=== PATIENT | male | born 1955 | race Caucasian/White ===

== ENCOUNTER 2020-06-01 11:06 | Inpatient (IN) | payer BC, OTHER ==
[~2020-06-01] VITALS: Ht 162.6 cm; Wt 52.2 kg
[2020-06-01] MEDS ORDERED: ACETAMINOPHEN 325 MG TABLET PO PRN (11:30)
[2020-06-01] MEDS ORDERED: BLOOD SUGAR DIAGNOSTIC 1 EACH STRIP IN ONE (11:30)
[2020-06-01] MEDS ORDERED: MAGNESIUM HYDROXIDE 30 ML UDC PO PRN (11:30)
[2020-06-01] MEDS ORDERED: LORAZEPAM 0.5 MG TABLET PO PRN (11:30)
[2020-06-01] MEDS ORDERED: MAG HYDROX/AL HYDROX/SIMETH 30 ML UDC PO PRN (11:30)
--- NOTE | 2020-06-01 11:30 | NUR ---
GPS/RN-NOTES ADMITTED 65 Y.O FEMALE PATIENT DIRECT ADMIT FROM [facility] . PATIENT BROUGHT IN BY AMBULANCE VIA GURNEY WITH TWO STAFF ASSIST. UPON FACE TO FACE INTERVIEW, PATIENT A/O X2 ,AMBULATORY STEADY GAIT.NOTED PATIENT DISHEVELLED FLAT AFFECT WITH EASILY ANGRY, AND IRRITABLE BEHAVIOR. PATIENT WAS ON 72 HR HOLD FOR DTS AND GD ADULT. ADVISEMENT WAS REVIEWED AND COPY WAS GIVEN TO THE PATIENT. PATIENT ANSWERS VERY LIMITED TO THE FREIGHT SORTER QUESTIONS AND REFUSED FULL BODY ASSESSMENT. PATIENT DENIES SI/HI/AVH AT THIS TIME. PATIENT WAS ORIENTED IN THE UNIT AND UNIT POLICIES. PATIENT'S RIGHT AND MEDICATION BOOKLET WAS GIVEN TO THE PATIENT. CONTRABAND DONE. DR. PIKE AND DR. MENEZES MADE AWARE OF THE ADMISSION. SISTER EULALIA ([phone]) MADE AWARE OF THE ADMISSION. Addendum: 06/01/20 at 1513 by REGIS BENTLEY RN CORRECTIONS ON PATIENT GENDER, PATIENT WAS A MALE.
--- NOTE | 2020-06-01 11:35 | NUR ---
GPS/RN-NOTES PATIENT REFUSED INITIAL ACCU-CHECK, EXPLAINED RISK AND BENEFITS BUT PATIENT STILL REFUSED.
[2020-06-01] MEDS ORDERED: NICO-676 TD (13:09)
[2020-06-01] MEDS ORDERED: CLON1TAB12 PO (13:09)
[2020-06-01] MEDS ORDERED: IBUP-1953 PO (13:09)
[2020-06-01] MEDS ORDERED: RIVA2.5T PO (13:09)
[2020-06-01] MEDS ORDERED: ATOR80TA PO (13:09)
[2020-06-01] MEDS ORDERED: NICO2GUM9 PO (13:09)
[2020-06-01] MEDS ORDERED: OLAN20TA6 PO (13:09)
[2020-06-01] MEDS ORDERED: FINA5TAB11 PO (13:09)
[2020-06-01] MEDS ORDERED: DIVA500T2 PO (13:09)
[2020-06-01] MEDS ORDERED: HALO5TAB PO (13:09)
[2020-06-01] MEDS ORDERED: OLAN5TAB6 PO (13:09)
[2020-06-01] MEDS ORDERED: ASPI-1152 PO (13:09)
[2020-06-01] MEDS ORDERED: LISI-607 PO (13:09)
[2020-06-01] MEDS ORDERED: METO25TA20 PO (13:09)
[2020-06-01] MEDS ORDERED: BENZ1TAB7 PO (13:09)
[2020-06-01 16:00] VITALS: BP 132/73
[2020-06-01] MEDS: DIVALPROEX SODIUM 250 MG TABLET.DR PO SCH ×2 (16:36→20:24)
[2020-06-01] MEDS ORDERED: NICOTINE POLACRILEX 2 MG GUM BC PRN (18:30)
--- NOTE | 2020-06-01 19:59 | NUR ---
GPS RN NOTE, [facility] CALLED ASKING FOR FAMILY TO BRING IN PATIENT'S XARELTO 2.5MG DOSE SO IT CAN BE GIVEN ACCURATELY. PHARMACY STATES THAT ONLY CARRY 10MG TABLETS OF XARELTO AND WILL HAVE A HARD TIME CUTTING XARELTO INTO FOURTHS TO MAKE AN ACCURATE DOSE OF XARELTO 2.5MG. CALLED PATIENT SISTER EULALIA PRATER [phone] INFORMED HER OF MY FINDINGS. PATIENT SISTER EULALIA PRATER STATED, " I THINK MY BOTHER MEDICATION WAS GIVEN TO [facility]. I WILL CHECK THEIR TOMORROW TO SEE IF IT THEIR AND I WILL BRING IT TO [facility] IF IT IS ". WILL ENDORSE THIS CONVERSATION TO P.M. SHIFT NURSE NOVEM. WILL CONTINUE TO MONITOR THIS PATIENT WITH THE HELP OF STAFF.
--- NOTE | 2020-06-01 20:30 | NUR ---
GPS-RN NOTE: PATIENT REFUSED TO HAVE SKIN BODY CHECK.
[2020-06-01 20:56] VITALS: BP 132/73
[2020-06-01] MEDS: IBUPROFEN 400 MG TABLET PO PRN (21:04)
--- NOTE | 2020-06-01 21:04 | NUR ---
GPS-RN NOTE: RIGHT KNEE PAIN PATIENT C/O RIGHT KNEE PAIN. ADMINISTERED MOTRIN 400MG PO ORDERED. WILL CONTINUE TO MONITOR FOR THE EFFECTIVENESS OF MEDICATION.
[2020-06-01] MEDS: OLANZAPINE 10 MG TABLET PO SCH (21:13)
[2020-06-01] MEDS: LORAZEPAM 0.5 MG TABLET PO PRN (22:42)
--- NOTE | 2020-06-01 22:42 | NUR ---
GPS-RN NOTE: ANXIETY PATIENT C/O FEELING ANXIOUS. ADMINISTERED ATIVAN 1MG PO ORDERED. WILL CONTINUE TO MONITOR FOR SAFETY AND BEHAVIOR.
[2020-06-02] MEDS: IBUPROFEN 400 MG TABLET PO PRN (03:48)
--- NOTE | 2020-06-02 03:49 | NUR ---
GPS-RN NOTE: GENERALIZED PAIN PATIENT C/O GENERALIZED PAIN. ADMINISTERED MOTRIN 400MG PO ORDERED. WILL CONTINUE TO MONITOR FOR THE EFFECTIVENESS OF MEDICATION.
[2020-06-02 07:40] LABS: CHOLESTEROL 128 mg/dL (<200); HDL CHOLESTEROL 31 mg/dL (40-60); LDL 83 mg/dL (0-99); TRIGLYCERIDES 55 mg/dL (30-150)
[2020-06-02 07:44] LABS: ALBUMIN 2.9 g/dL (3.4-5.0); BILIRUBIN,TOTAL 0.4 mg/dL (0.2-1.0); CALCIUM, SERUM 9.2 mg/dL (8.5-10.1); CREATININE 0.8 mg/dL (0.6-1.3); POTASSIUM 4.4 mmol/L (3.5-5.1); TOTAL PROTEIN, SERUM 5.9 g/dL (6.4-8.2)
[2020-06-02 08:00] VITALS: BP 117/84
[2020-06-02] MEDS: ATORVASTATIN 40 MG TABLET PO SCH (08:23)
[2020-06-02] MEDS: LISINOPRIL (5MG) 5 MG TABLET PO SCH ×2 (08:24→16:55)
[2020-06-02] MEDS: FINASTERIDE (5 MG) 5 MG TABLET PO SCH (08:24)
[2020-06-02] MEDS: OLANZAPINE 5 MG TABLET PO SCH (08:24)
[2020-06-02] MEDS: METOPROLOL TARTRATE 25 MG TABLET PO SCH ×2 (08:24→16:55)
[2020-06-02] MEDS: DIVALPROEX SODIUM 250 MG TABLET.DR PO SCH ×3 (08:24→21:07)
[2020-06-02] MEDS: ASPIRIN EC 81 MG TABLET.DR PO SCH (08:24)
[2020-06-02] MEDS ORDERED: NICOTINE PATCH (14MG) 14 MG PATCH.TD24 TD SCH (09:00)
--- NOTE | 2020-06-02 09:00 | NUR ---
RN NOTE- PT SLEEPING EASILY WAKENED NEEDS ATTENDED PT SHORT IN CONVERSATION LIKE HE DOESNT WANT TO BE BOTHERED MED COMPLIANT TERSE AND WITHDRAWN DENIES ALL FAMILY BRINGING XERALTO 2.5 MG TABS
[2020-06-02] MEDS: LORAZEPAM 0.5 MG TABLET PO PRN (13:40)
--- NOTE | 2020-06-02 13:40 | NUR ---
RN NOTE- AGITATED RESTLESS PACING . ATIVAN 1 MG GIVEN
[2020-06-02 15:51] VITALS: BP 104/64
[2020-06-02] MEDS: RIVAROXABAN 2.5 MG PO SCH (16:54)
[2020-06-02 19:56] VITALS: BP 122/70
[2020-06-02] MEDS: TEMAZEPAM 7.5 MG CAPSULE PO PRN (21:08)
[2020-06-02] MEDS: OLANZAPINE 10 MG TABLET PO SCH (21:08)
--- NOTE | 2020-06-02 21:11 | NUR ---
Pt c/o insomnia. Least restrictive measures ineffective. Restoril 7.5 mg 1 cap po prn given as ordered. Will continue to monitor.
--- NOTE | 2020-06-02 22:45 | NUR ---
Post 1 hr Restoril effective. Pt asleep in bed easy to arouse. Will continue to monitor.
[2020-06-03] MEDS: LORAZEPAM 0.5 MG TABLET PO PRN (02:42)
--- NOTE | 2020-06-03 02:43 | NUR ---
Pt woke up and c/o anxiety. Least restrictive measures ineffective. Ativan 1 mg po prn given as ordered. Will continue to monitor.
--- NOTE | 2020-06-03 03:46 | NUR ---
Post 1 hr Ativan effective. Pt is asleep in bed easy to arouse. Will continue to monitor.
[2020-06-03 06:37] LABS: BASOPHILS # (AUTO) 0.1 /CMM (0.0-0.2); BASOPHILS % (AUTO) 0.7 % (0.0-2.0); EOSINOPHILS % (AUTO) 1.9 % (0.0-6.0); HEMATOCRIT 39 % (39-51); HEMOGLOBIN 12.8 g/dL (13.5-17.5); LYMPHOCYTES # (AUTO) 1.1 /CMM (0.8-4.8); LYMPHOCYTES % (AUTO) 13.9 % (20.0-44.0); MEAN CORPUSCULAR HGB CONC 33 g/dl (31.0-36.0); MEAN CORPUSCULAR VOLUME 94 fL (80-96); MONOCYTES # (AUTO) 0.9 /CMM (0.1-1.30); MONOCYTES % (AUTO) 11.7 % (2.0-12.0); NEUTROPHILS # (AUTO) 5.6 /CMM (1.8-8.9); NEUTROPHILS % (AUTO) 71.8 % (43.0-81.0); PLATELET COUNT (AUTO) 213 /CMM (150-450); RED BLOOD CELL COUNT(AUTO) 4.12 MIL/uL (4.5-6.0); WHITE BLOOD COUNT (AUTO) 7.8 K/uL (4.3-11.0)
[2020-06-03 08:00] VITALS: BP 131/88
[2020-06-03] MEDS: ASPIRIN EC 81 MG TABLET.DR PO SCH (08:26)
[2020-06-03] MEDS: ATORVASTATIN 40 MG TABLET PO SCH (08:26)
[2020-06-03] MEDS: DIVALPROEX SODIUM 250 MG TABLET.DR PO SCH ×3 (08:26→21:02)
[2020-06-03] MEDS: FINASTERIDE (5 MG) 5 MG TABLET PO SCH (08:26)
[2020-06-03] MEDS: OLANZAPINE 5 MG TABLET PO SCH (08:26)
[2020-06-03] MEDS: METOPROLOL TARTRATE 25 MG TABLET PO SCH ×2 (08:27→16:24)
[2020-06-03] MEDS: LISINOPRIL (5MG) 5 MG TABLET PO SCH ×2 (08:27→16:24)
--- NOTE | 2020-06-03 09:00 | NUR ---
RN NOTE- PT CALM DIRECTABLE SLEPT WELL PO INTAKE GOOD MED COMPLIANT NEEDS ATTENDED SEEN BY DR GLENDY CORNEJO SI [facility]
--- NOTE | 2020-06-03 10:10 | NUR ---
DPOA Contact: BIBI called the pts sister and DPOA, Katiana De Jesus ([phone]), and informed her about the pts hold and informed her that the MD would like to keep the pt on the unit a few more days. BIBI explained the need for medication stabilization and then explained that the MD is the only one who can discharge the pt. BIBI stated that she met with the pt and that the pt refused to speak to the SW due to his irritation with being on a hold. BIBI received collateral information on the pt for the psychosocial assessment. BIBI also asked the pts DPOA to fax over the DPOA paperwork.
--- NOTE | 2020-06-03 12:51 | NUR ---
DPOA Contact: SW called the pts sister and DPOA, Katiana De Jesus ([phone]), and she stated that she wanted to know if the pt would be put on a 5250 hold and that requires the pt to have a hearing. Pts DPOA stated that she would like to virtually attend the hearing and the SW stated that she would make sure to inform the unemployment insurance hearing officer.
--- NOTE | 2020-06-03 13:39 | NUR ---
Initial Discharge Plan: Pt currently resides in his home located at [address] [place] [address]; ([phone]) with his girlfriend. Per pt, he would like to return to his home. Per pt's DPOA, Katiana ([phone]), she would like the pt to be discharged back home. SW will work with the pt and the MD regarding appropriate discharge planning. SW will form a safe and proper discharge.
--- NOTE | 2020-06-03 15:16 | NUR ---
Group Note: SW invited patient to participate in group therapy to discuss the topic of Problem Solving. Patient presents withdrawn and isolative. Patient did not want to engage in group therapy at this time. slab worker encouraged patient to step out of the room and join peers in the dining room and patio for fresh air. Patient stated, "maybe".
[2020-06-03 16:00] VITALS: BP 115/63
[2020-06-03] MEDS: RIVAROXABAN 2.5 MG PO SCH (16:23)
[2020-06-03 19:57] VITALS: BP 112/60
[2020-06-03] MEDS: NICOTINE PATCH (14MG) 14 MG PATCH.TD24 TD PRN (20:04)
--- NOTE | 2020-06-03 20:07 | NUR ---
RN NOTES : PT. REQUEST FOR NICOTINE PATCH 14 MG , PUT ON PER PT. REQUEST , WILL CONTINUE TO MONITOR.
[2020-06-03] MEDS: OLANZAPINE 10 MG TABLET PO SCH (21:43)
[2020-06-04] MEDS: TEMAZEPAM 7.5 MG CAPSULE PO PRN (01:47)
--- NOTE | 2020-06-04 01:47 | NUR ---
GPS RN NOTE: INSOMNIA PT. C/O UNABLE TO SLEEP. ADMINISTERED RESTORIL 7.5 MG PO PRN ORDERED. WILL CONTINUE TO MONITOR FOR SAFETY AND BEHAVIOR.
[2020-06-04 08:00] VITALS: BP 117/68
[2020-06-04] MEDS: OLANZAPINE 5 MG TABLET PO SCH (08:09)
[2020-06-04] MEDS: ASPIRIN EC 81 MG TABLET.DR PO SCH (08:09)
[2020-06-04] MEDS: ATORVASTATIN 40 MG TABLET PO SCH (08:10)
[2020-06-04] MEDS: DIVALPROEX SODIUM 250 MG TABLET.DR PO SCH ×3 (08:10→20:29)
[2020-06-04] MEDS: METOPROLOL TARTRATE 25 MG TABLET PO SCH ×2 (08:11→16:35)
[2020-06-04] MEDS: FINASTERIDE (5 MG) 5 MG TABLET PO SCH (08:13)
[2020-06-04] MEDS: LISINOPRIL (5MG) 5 MG TABLET PO SCH ×2 (08:13→16:36)
--- NOTE | 2020-06-04 11:44 | NUR ---
DPOA Contact: SW returned a call from the pts sister and DPOA, Katiana De Jesus ([phone]), and informed her that the pt is not being discharged today. SW stated that the MD feels that the pt is not appropriate for discharge and stated that the SW will pass along the message to have the MD call her.
[2020-06-04] MEDS: NICOTINE PATCH (14MG) 14 MG PATCH.TD24 TD PRN (12:00)
--- NOTE | 2020-06-04 12:41 | NUR ---
UR Note: BIBI faxed a clinical to Donya Lai with attn to Lauryn Stephen to the fax number: [phone].
--- NOTE | 2020-06-04 15:47 | NUR ---
Group Note: SW encouraged pt to attend group therapy on 06/04/20 on the topic of discharge planning. Pt refused to attend but stated that he was feeling much better and wanted to be discharged by the MD as soon as possible.
[2020-06-04 16:00] VITALS: BP 112/68
[2020-06-04] MEDS: RIVAROXABAN 2.5 MG PO SCH (16:37)
[2020-06-04 20:04] VITALS: BP 114/67
[2020-06-04] MEDS: OLANZAPINE 10 MG TABLET PO SCH (21:23)
[2020-06-05] MEDS: TEMAZEPAM 7.5 MG CAPSULE PO PRN (01:10)
--- NOTE | 2020-06-05 01:10 | NUR ---
GPS RN NOTES: INSOMNIA PT C/O UNABLE TO SLEEP. PT REQUESTED SLEEPING PILL. OFFERED RESTORIL 7.5MG PO PRN ORDERED. PT AGREED AND TOLERATED MEDIATION WELL. CONTINUE TO MONITOR.
[2020-06-05 08:00] VITALS: BP 137/92
[2020-06-05] MEDS: ATORVASTATIN 40 MG TABLET PO SCH (08:23)
[2020-06-05] MEDS: NICOTINE PATCH (14MG) 14 MG PATCH.TD24 TD PRN (08:23)
[2020-06-05] MEDS: FINASTERIDE (5 MG) 5 MG TABLET PO SCH (08:23)
[2020-06-05] MEDS: DIVALPROEX SODIUM 250 MG TABLET.DR PO SCH ×3 (08:23→20:00)
[2020-06-05] MEDS: ASPIRIN EC 81 MG TABLET.DR PO SCH (08:23)
[2020-06-05] MEDS: OLANZAPINE 5 MG TABLET PO SCH (08:24)
[2020-06-05] MEDS: METOPROLOL TARTRATE 25 MG TABLET PO SCH ×2 (08:24→17:01)
[2020-06-05] MEDS: LISINOPRIL (5MG) 5 MG TABLET PO SCH ×2 (08:25→16:50)
--- NOTE | 2020-06-05 11:21 | NUR ---
Group Note: SW encouraged pt to participate in group on the topic of dealing with anxiety. Patient was asleep at that time and did not participate.
--- NOTE | 2020-06-05 11:22 | NUR ---
Group Note: SW encouraged pt to participate in group on the topic of dealing with anxiety. Patient stated that she is feeling a little anxiety. Patient presents increasingly depressed and withdrawn. BIBI encouraged patient to share her feelings and emotions, however patient is guarded and does not want to over share. Addendum: 06/05/20 at 1123 by JAK ENCINAS ERROR, WRONG PATIENT NOTE
--- NOTE | 2020-06-05 12:55 | NUR ---
DPOA Contact: BIBI called the pts sister and DPOA, Katiana De Jesus ([phone]), and left her a voicemail stating that the pt will be discharged on Wednesday.
[2020-06-05 16:00] VITALS: BP 116/65
[2020-06-05] MEDS: RIVAROXABAN 2.5 MG PO SCH (16:51)
[2020-06-05 19:30] VITALS: BP 111/64
[2020-06-05] MEDS: OLANZAPINE 10 MG TABLET PO SCH (21:16)
[2020-06-06] MEDS: TEMAZEPAM 7.5 MG CAPSULE PO PRN (01:45)
--- NOTE | 2020-06-06 01:47 | NUR ---
GPS RN NOTES: INSOMNIA PT C/O UNABLE TO SLEEP. PT REQUESTED SLEEPING PILL. VITALS WNL. OFFERED RESTORIL 7.5MG PO PRN ORDERED. PT AGREED AND TOLERATED MEDIATION WELL. CONTINUE TO MONITOR.
[2020-06-06 08:00] VITALS: BP 116/63
[2020-06-06] MEDS: ASPIRIN EC 81 MG TABLET.DR PO SCH (08:56)
[2020-06-06] MEDS: OLANZAPINE 5 MG TABLET PO SCH (08:56)
[2020-06-06] MEDS: METOPROLOL TARTRATE 25 MG TABLET PO SCH (08:56)
[2020-06-06] MEDS: FINASTERIDE (5 MG) 5 MG TABLET PO SCH (08:57)
[2020-06-06] MEDS: ATORVASTATIN 40 MG TABLET PO SCH (08:57)
[2020-06-06] MEDS: DIVALPROEX SODIUM 250 MG TABLET.DR PO SCH (08:57)
[2020-06-06] MEDS: LISINOPRIL (5MG) 5 MG TABLET PO SCH (08:57)
[2020-06-06] MEDS: NICOTINE PATCH (14MG) 14 MG PATCH.TD24 TD PRN (08:57)
--- NOTE | 2020-06-06 09:10 | NUR ---
Probable Cause (PC) Hearing: SW called the pts sister and DPOA, Katiana De Jesus ([phone]), and left a voicemail regarding the pts hearing and what it entails. BIBI stated that she is aware that she would like to be present so she asked for a call back.
--- NOTE | 2020-06-06 09:45 | NUR ---
DPOA Contact: BIBI called the pts sister and DPOA, Katiana De Jesus ([phone]), and informed her that the MD would like to discharge the pt today. She stated that she will come pick him up around 4pm.
--- NOTE | 2020-06-06 10:40 | NUR ---
MD Contact: BIBI called Dr. Burt's office ([phone]) and spoke to Keith who assisted the SW in making a hospital follow up appointment for the pt on Wednesday, July 01 at 5:20pm telehealth.
--- NOTE | 2020-06-06 10:41 | NUR ---
MD Contact: BIBI called Dr. Khoury office and spoke to Radha Myers who assisted the SW in making a hospital follow up appointment for the pt on June 20 at 2pm. BIBI faxed over information to the fax number: ([phone]).
--- NOTE | 2020-06-06 14:36 | NUR ---
Discharge Note: Pt was discharged back to his home [place] [address] [place] [address]; ([phone]). Pts sister and DPOA, Katiana Workman ([phone]), picked up the pt around 4pm. Upon discharge, the pt appeared to be in a euthymic mood and presented with a calm affect. Pt denied visual/auditory hallucinations and denied suicidal/homicidal ideation. Pt appeared to be alert and oriented x4 (time, place, self and situation). Pt appeared to be ambulatory, well-groomed and appropriately dressed. Pt was given smoking cessation referrals. Pt will be under the care of psychiatrist, Dr. Burt, located at [address] [place] [address], [facility] [place] [address]; ([phone]); and a fax of records was sent to: ([phone]). Pt has an appointment set for July 01 at 5:20pm telehealth. Pt will also be under the care of his sales floor team leader, Dr. Khoury, located at [address] [place] [address]; ; and a fax of records was sent to: ([phone]). Pt has appointment on June 20 at 2pm.
[2020-06-06 16:00] VITALS: BP 136/73
--- NOTE | 2020-06-06 16:35 | NUR ---
PERSONAL LINES INSURANCE AGENT NOTES PATENT DISCHARGE HOME SELF CARE. PATIENT STABLE REFUSED PAIN , MED RECONCILIATION REVIEWED AND EXPLAINED TO THE PATIENT AND SISTER EULALIA. PATIENT VERBALIZED UNDERSTANDING. PATIENT DENIED SI/HI/AVH AT THIS TIME. PRESCRIPTION, AND PAPERWORK HANDED TO THE PATIENT. PATIENT WILL FOLLOW PRIMARY MD, AND PSYCHIATRIST. ESCORTED PATIENT TO THE LOBBY FOR SAFETY. PATIENT BUSSER BY SISTER NAME EULALIA JAKY PHONE # [phone].
== END 2020-06-06 16:35 | disposition home or self-care (01) | DRG 885 ==
LOC: GPS 11:06
PROVIDERS: ADMIT Psychiatry & Neurology Psychiatry; ATTEND Student in an Organized Health Care Education/Training Program
DX: F31.60 Bipolar disorder, current episode mixed, unspecified (principal); E44.0 Moderate protein-calorie malnutrition; R45.851 Suicidal ideations; Z68.1 Body mass index [BMI] 19.9 or less, adult; I10 Essential (primary) hypertension; F17.210 Nicotine dependence, cigarettes, uncomplicated; N40.0 Benign prostatic hyperplasia without lower urinary tract symptoms; E88.09 Other disorders of plasma-protein metabolism, not elsewhere classified
CPT/HCPCS: 36415; 80053-TC; 80061-TC; 84443-TC; 85025-TC; 87081-TC